=== PATIENT | female | born 2000 | race African-American/Black ===

== ENCOUNTER 2019-03-09 13:40 | Emergency (ER) | payer MEDICAID ==
[~2019-03-09] VITALS: Ht 160 cm; Wt 50.0 kg
[2019-03-09] MEDS ORDERED: IBUPROFEN 600MG TABLET PO STA (16:13)
[2019-03-09] MEDS ORDERED: KETOROLAC 60MG/2ML VIAL IM ONE (17:45)
[2019-03-09 18:09] VITALS: BP 117/66
== END 2019-03-09 18:17 | disposition home or self-care (01) ==
LOC: ER 15:02
DX: S20.219A Contusion of unspecified front wall of thorax, initial encounter (principal); V49.59XA Passenger injured in collision with other motor vehicles in traffic accident, initial encounter; Y93.89 Activity, other specified; Y92.89 Other specified places as the place of occurrence of the external cause; Y99.8 Other external cause status
CPT/HCPCS: 71045; 81025; 93005; 96372; 99283; J1885; Z7610

== ENCOUNTER → 2020-07-25 | Outpatient (CLI) | payer MEDICAID ==
[~2020-07-25] MED LIST: FERR325T6 MT; IBUP-2030 PO; PREN-55 MT
== END | disposition home or self-care (01) ==
LOC: LAB 12:14
PROVIDERS: ATTEND Obstetrics & Gynecology
DX: Z01.812 Encounter for preprocedural laboratory examination (principal); Z20.828 Contact with and (suspected) exposure to other viral communicable diseases
CPT/HCPCS: 87426

== ENCOUNTER 2023-08-26 21:55 | Emergency (ER) | payer MEDICAID, OTHER ==
[~2023-08-26] VITALS: Ht 154.9 cm; Wt 69.5 kg
[2023-08-26 22:02] VITALS: O2SAT 100
[2023-08-26] MEDS: CEFTRIAXONE SODIUM 500MG VIAL IM ONE (22:30)
[2023-08-26 22:43] LABS: CLARITY URINE CLOUDY (CLEAR); COLOR URINE YELLOW (YELLOW); GLUCOSE URINE NEGATIVE (NEGATIVE); KETONES URINE NEGATIVE (NEGATIVE); LEUKOCYTE ESTERASE URINE NEGATIVE (NEGATIVE); NITRITE URINE NEGATIVE (NEGATIVE); OCCULT BLOOD URINE TRACE (NEGATIVE); PH URINE 5.5 (4.5-8.0); PROTEIN URINE NEGATIVE (NEGATIVE); SPECIFIC GRAVITY URINE 1.026 (1.005-1.030)
[2023-08-26 22:59] LABS: BACTERIA URINE 1+; RBC URINE 0-2 /hpf (0-2); SQUAMOUS EPITHELIAL CELL URINE 1+ /lpf (RARE/1+); WBC URINE 0-2 /hpf (0-2)
[2023-08-26] MEDS ORDERED: FLUC150T46 MT (22:59)
[2023-08-26] MEDS ORDERED: DOXY100T2 MT (23:00)
[2023-08-26] MEDS ORDERED: AZIT1PAC9 MT (23:17)
[2023-08-26] MEDS ORDERED: CEPH250C2 MT (23:19)
[2023-08-26 23:20] VITALS: BP 120/79; PULSE 81; RESP 20; TEMP 98.2
[2023-08-30 04:07] LABS: CHLAMYDIA TRACHOMATIS NAA Negative (Negative); NEISSERIA GONORRHOEAE NAA Negative (Negative)
== END 2023-08-26 23:40 | disposition home or self-care (01) ==
LOC: ER 21:55
DX: Z20.2 Contact with and (suspected) exposure to infections with a predominantly sexual mode of transmission (principal); Z32.01 Encounter for pregnancy test, result positive
CPT/HCPCS: 99283; 87491; 87591; 81003; 81025; 87210; 96372; J0696